=== PATIENT | male | born 1965 | race Caucasian/White ===

== ENCOUNTER 2022-10-01 11:07 | Emergency (ER) | payer BC ==
[~2022-10-01] VITALS: Ht 170.2 cm; Wt 127.3 kg
[2022-10-01 12:15] VITALS: BP 148/76
[2022-10-01 14:49] LABS: BASOPHILS % (AUTO) 0.5 % (0-1); EOSINOPHILS # (AUTO) 0.1 X10'3 (0-0.9); EOSINOPHILS % (AUTO) 0.8 % (0-6); HEMATOCRIT 43.2 % (42.0-52.0); LYMPHOCYTES # (AUTO) 0.3 X10'3 (1.1-4.8); LYMPHOCYTES % (AUTO) 4.6 % (21-51); MEAN CORPUSCULAR HEMOGLOBIN 29.8 PG (27.0-31.0); MEAN CORPUSCULAR HGB CONC 32.5 g/dL (33.0-36.5); MEAN CORPUSCULAR VOLUME 91.7 FL (78-98); MEAN PLATELET VOLUME 7.8 FL (7.4-10.4); MONOCYTES # (AUTO) 0.8 X10'3 (0-0.9); NEUTROPHILS # (AUTO) 5.2 X10'3 (1.8-7.7); NEUTROPHILS % (AUTO) 81.1 % (42-75); PLATELET COUNT 306 X10'3 (140-440); RED BLOOD COUNT 4.71 X10'6 (4.70-6.10); RED CELL DISTRIBUTION WIDTH 14.9 % (11.5-14.5); WHITE BLOOD COUNT 6.4 X10'3 (4.5-11.0)
[2022-10-01] MEDS ORDERED: ondansetron 4mg rapidly disintigrating tab PO ONE (14:50)
[2022-10-01] MEDS ORDERED: ipratropium/albuterol 3ml nebule NEB ONE (15:10)
[2022-10-01] MEDS ORDERED: predniSONE 20 mg tablet PO ONE (15:10)
[2022-10-01 15:27] LABS: ALANINE AMINOTRANSFERASE 29 U/L (12-78); ALBUMIN 3.4 G/DL (3.4-5.0); ALBUMIN/GLOBULIN RATIO 0.9 (1.1-1.5); ALKALINE PHOSPHATASE 90 IU/L (46-116); ANION GAP 10 (8-16); ASPARTATE AMINO TRANSFERASE 20 U/L (10-37); BILIRUBIN,TOTAL 0.5 MG/DL (0.1-1.0); BLOOD UREA NITROGEN 18 MG/DL (7-18); BUN/CREATININE RATIO 17.3 (5.4-32.0); CALCIUM 8.9 MG/DL (8.5-10.1); CHLORIDE 101 MMOL/L (99-107); CREATININE 1.04 MG/DL (0.60-1.10); GLUCOSE 107 MG/DL (70-104); SODIUM 135 MMOL/L (135-145); TOTAL CARBON DIOXIDE 24.3 MMOL/L (24-32); TOTAL PROTEIN 7.2 G/DL (6.4-8.2); eGFR 74 ML/MIN
[2022-10-01] MEDS ORDERED: CefTRIAXone 1000mg IM Kit (w/lidocaine diluent) IM ONE (15:30)
[2022-10-01] MEDS ORDERED: oseltamivir phos 75mg capsule PO ONE (15:30)
[2022-10-01] MEDS ORDERED: PRED20TA PO (15:41)
[2022-10-01] MEDS ORDERED: GUAI-647 PO (15:41)
[2022-10-01] MEDS ORDERED: ALBU6.7H14 INH (15:41)
[2022-10-01] MEDS ORDERED: DOXY100C43 PO (15:41)
[2022-10-01] MEDS ORDERED: CEPH250T PO (15:41)
[2022-10-01] MEDS ORDERED: TAM75C PO (15:41)
== END 2022-10-01 16:11 | disposition home or self-care (01) ==
LOC: ER 11:07
DX: J10.1 Influenza due to other identified influenza virus with other respiratory manifestations (principal); Z20.822 Contact with and (suspected) exposure to COVID-19; J18.9 Pneumonia, unspecified organism; R05.9 Cough, unspecified; R09.81 Nasal congestion; R06.02 Shortness of breath; I10 Essential (primary) hypertension; E11.9 Type 2 diabetes mellitus without complications; Z98.890 Other specified postprocedural states; Z79.2 Long term (current) use of antibiotics; Z79.899 Other long term (current) drug therapy
CPT/HCPCS: 36415; 71046; 80053; 84145; 85025; 87502; 87503; 87635; 94640; 96372; 99284; C9803; J0696; J7512; 94760